=== PATIENT | female | born 1955 | race Caucasian/White ===

== ENCOUNTER 2020-06-14 21:06 | Observation (INO) ==
[2020-06-14] MEDS ORDERED: methylPREDNISolone SOD SUC 125 MG/2 ML VIAL IV STA (21:34)
[2020-06-14] MEDS ORDERED: SODIUM CHLORIDE 0.9% 1,000 ML IV STA (21:34)
[2020-06-14] MEDS ORDERED: ALBUTEROL/IPRATROPIUM 3 ML NEB RESP TX STA (21:34)
[2020-06-14 21:44] LABS: Basophils % 0.2 % (0.0-0.8); Eosinophils % 0.1 % (0.00-10.9); Hematocrit 37.1 VOL% (35.7-47.0); Hemoglobin 12.4 GM/DL (12.0-16.0); Immature Granulocytes % 0.6 %; Immature Granulocytes Absolute 0.05 #; Lymphocytes # 1.7 10*3/uL (1.4-4.0); Lymphocytes % 19.4 % (21.3-54.2); Mean Corpuscular HGB Conc 33.4 GM/DL (32-36); Mean Corpuscular Volume 95.9 FL (87-102); Mean Platelet Volume 8.9 FL (9.6-12.0); Monocytes % 5.8 % (1.7-12.7); Neutrophils % 73.9 % (38.7-73.9); Platelet Count 307 T/CUMM (130-400); Red Blood Count 3.87 MC/CUMM (3.8-5.5); Red Cell Distribution Width 13.5 % (9.3-17.3); White Blood Count 8.5 T/CUMM (4-12)
[2020-06-14 22:05] LABS: Alanine Aminotransferase 19 U/L (13-56); Albumin 2.7 G/DL (3.4-5.0); Alkaline Phosphatase 133 U/L (45-117); Aspartate Amino Transferase 22 U/L (0-37); Bilirubin,Total < 0.39 MG/DL (0.2-1.0); Blood Urea Nitrogen 8 MG/DL (7-18); Estimated Glom Filtration Rate 99 ML/MIN; Glucose 107 MG/DL (74-106); Osmolality,Calculated 265.2 MOS/KG (273-304); Total Protein 6.7 G/DL (6.4-8.3)
[2020-06-14] MEDS ORDERED: POTASSIUM CHLORIDE 20 MEQ/15 ML UDCUP PO ONE (22:07)
[2020-06-14 22:14] LABS: Eosinophils 1 % (0-10); Lymphocytes 23 % (20-55); Platelet Estimate Normal; Segmented Neutrophils 75 % (50-85); Total Cells Counted 100
[2020-06-14] MEDS ORDERED: LEVOFLOXACIN INJ 500 MG in PREMIX 1 EACH IV STA (22:27)
[2020-06-14] MEDS ORDERED: ACETAMINOPHEN 325 MG TABLET PO PRN (23:22)
[2020-06-14] MEDS ORDERED: ZALEPLON 5 MG CAPSULE PO PRN (23:22)
[2020-06-14] MEDS ORDERED: DEXTROSE 50% 25 GM/50 ML VIAL IV PRN (23:22)
[2020-06-14] MEDS ORDERED: GLUCAGON 1 MG VIAL IM PRN (23:22)
[2020-06-14] MEDS ORDERED: ONDANSETRON 4 MG/2 ML VIAL IV PRN (23:22)
[2020-06-14] MEDS ORDERED: MORPHINE 4 MG/1 ML VIAL IV PRN (23:22)
[2020-06-14] MEDS ORDERED: guaiFENesin/DM ER 600-30 MG TABLET PO PRN (23:22)
[2020-06-14] MEDS ORDERED: hydrALAZINE 20 MG/1 ML VIAL IV PRN (23:22)
[2020-06-14] MEDS ORDERED: FUROSEMIDE 40 MG/4 ML VIAL IV ONE (23:22)
[2020-06-14] MEDS ORDERED: diphenhydrAMINE CAP 25 MG CAPSULE PO PRN (23:22)
[2020-06-14] MEDS ORDERED: NICOTINE 21 MG/24 HR PATCH TRANSDERM PRN (23:22)
[2020-06-14] MEDS ORDERED: ALBUTEROL 0.63 MG/3 ML NEB RESP TX PRN (23:23)
[2020-06-14 23:46] LABS: ABG Base Excess 1.8 MMOL/L (-2.5-2.5); ABG HCO3 25.9 MMOL/L (20-26); ABG Oxygen Saturation 94.5 % (95-100); ABG PCO2 41.4 MM HG (35-48); ABG PH 7.415 (7.35-7.45); ABG PO2 71.5 MM HG (80-95); ABG TCO2 23.3 MMOL/L (23-27); Allen Test Positive
[2020-06-15] MEDS ORDERED: POTASSIUM CHLORIDE 20 MEQ TABLET PO ONE (00:59)
[2020-06-15 02:13] LABS: Apearance,Urine CLOUDY (Clear); Bacteria,Urine Moderate /HPF (Few); Bilirubin,Urine Negative (Negative); Blood, Urine Negative (Negative); Glucose,Urine (UA) Negative (Negative); Ketones,Urine Negative (Negative); Mucus,Urine Moderate /LPF (Occasional); Nitrite,Urine Positive (Negative); Protein,Urine Negative; RBC,Urine 14 /HPF (0-4); Squamous Epithelial Cell,Urine Occasional /HPF (0-10); Urine Color Yellow (Yellow); Urine Specific Gravity 1.014 (1.001-1.035); Urine Urobilinogen < 2.0 EU/DL (0.2-1.0); WBC,Urine 588 /HPF (0-6)
[2020-06-15] MEDS: ALBUTEROL/IPRATROPIUM 3 ML NEB RESP TX SCH ×6 (03:56→23:41)
[2020-06-15 04:59] LABS: Hematocrit 40.4 VOL% (35.7-47.0); Hemoglobin 13.6 GM/DL (12.0-16.0); Immature Granulocytes % 0.4 %; Immature Granulocytes Absolute 0.03 #; Lymphocytes # 0.6 10*3/uL (1.4-4.0); Lymphocytes % 8.7 % (21.3-54.2); Mean Corpuscular HGB Conc 33.7 GM/DL (32-36); Mean Corpuscular Volume 95.1 FL (87-102); Mean Platelet Volume 8.9 FL (9.6-12.0); Monocytes % 0.6 % (1.7-12.7); Neutrophils % 90.3 % (38.7-73.9); Platelet Count 353 T/CUMM (130-400); Red Blood Count 4.25 MC/CUMM (3.8-5.5); Red Cell Distribution Width 13.4 % (9.3-17.3); White Blood Count 7.1 T/CUMM (4-12)
[2020-06-15 05:14] LABS: Calcium 8.5 MG/DL (8.5-10.1); Osmolality,Calculated 271.1 MOS/KG (273-304)
[2020-06-15 05:23] LABS: Hypochromasia 1+; Lymphocytes 6 % (20-55); Microcytosis Slight; Platelet Estimate Adequate; Segmented Neutrophils 92 % (50-85); Total Cells Counted 100
[2020-06-15] MEDS: methylPREDNISolone SOD SUC 125 MG/2 ML VIAL IV SCH ×2 (05:42→14:10)
[2020-06-15] MEDS: VERAPAMIL SR 240 MG TABLET PO SCH (08:46)
[2020-06-15] MEDS: ASPIRIN CHEW 81 MG TABLET PO SCH (08:46)
[2020-06-15] MEDS: FUROSEMIDE 20 MG TABLET PO SCH (08:46)
[2020-06-15] MEDS: ENOXAPARIN 40 MG/0.4 ML SYRINGE SUBCUT SCH (08:47)
[2020-06-15] MEDS: cefTRIAXone 1,000 MG in SYRINGE 1 EACH IV SCH (08:54)
[2020-06-15] MEDS: UMECLIDINIUM VILANTEROL INH SCH (09:05)
[2020-06-15] MEDS ORDERED: busPIRone 5 MG TABLET PO PRN (10:20)
[2020-06-15] MEDS ORDERED: AZITHROMYCIN INJ 500 MG in SODIUM CHLORIDE 0.9% 250 ML IV SCH (11:00)
[2020-06-15] MEDS: ESCITALOPRAM 10 MG TABLET PO SCH (12:38)
[2020-06-15] MEDS: GABAPENTIN 100 MG CAPSULE PO SCH ×2 (16:36→20:49)
[2020-06-15] MEDS: ACETAMINOPHEN 325 MG TABLET PO SCH ×2 (16:36→20:49)
[2020-06-15] MEDS: predniSONE 20 MG TABLET PO SCH (20:49)
[2020-06-15] MEDS ORDERED: ESCITALOPRAM 10 MG TABLET PO SCH (21:00)
[2020-06-15] MEDS ORDERED: CARBIDOPA/LEVODOPA 25-250 MG TABLET PO SCH (21:00)
[2020-06-16] MEDS: ALBUTEROL/IPRATROPIUM 3 ML NEB RESP TX SCH ×3 (03:34→11:39)
[2020-06-16 05:49] LABS: Basophils % 0.1 % (0.0-0.8); Hematocrit 40.9 VOL% (35.7-47.0); Hemoglobin 13.3 GM/DL (12.0-16.0); Immature Granulocytes % 0.8 %; Immature Granulocytes Absolute 0.08 #; Lymphocytes # 1.2 10*3/uL (1.4-4.0); Lymphocytes % 11.4 % (21.3-54.2); Mean Corpuscular HGB Conc 32.5 GM/DL (32-36); Mean Corpuscular Volume 97.6 FL (87-102); Mean Platelet Volume 9.3 FL (9.6-12.0); Monocytes % 1.4 % (1.7-12.7); Neutrophils % 86.3 % (38.7-73.9); Platelet Count 386 T/CUMM (130-400); Red Blood Count 4.19 MC/CUMM (3.8-5.5); Red Cell Distribution Width 13.7 % (9.3-17.3); White Blood Count 10.3 T/CUMM (4-12)
[2020-06-16 06:14] LABS: Alanine Aminotransferase < 9 U/L (13-56); Albumin 2.8 G/DL (3.4-5.0); Alkaline Phosphatase 142 U/L (45-117); Aspartate Amino Transferase 9 U/L (0-37); Bilirubin,Total < 0.39 MG/DL (0.2-1.0); Blood Urea Nitrogen 8 MG/DL (7-18); Calcium 9.2 MG/DL (8.5-10.1); Estimated Glom Filtration Rate 83 ML/MIN; Glucose 206 MG/DL (74-106); Osmolality,Calculated 276.8 MOS/KG (273-304); Total Protein 7.4 G/DL (6.4-8.3)
[2020-06-16] MEDS: VERAPAMIL SR 240 MG TABLET PO SCH (08:13)
[2020-06-16] MEDS: ESCITALOPRAM 10 MG TABLET PO SCH (08:13)
[2020-06-16] MEDS: GABAPENTIN 100 MG CAPSULE PO SCH (08:14)
[2020-06-16] MEDS: FUROSEMIDE 20 MG TABLET PO SCH (08:14)
[2020-06-16] MEDS: ENOXAPARIN 40 MG/0.4 ML SYRINGE SUBCUT SCH (08:14)
[2020-06-16] MEDS: ACETAMINOPHEN 325 MG TABLET PO SCH (08:14)
[2020-06-16] MEDS: cefTRIAXone 1,000 MG in SYRINGE 1 EACH IV SCH (08:14)
[2020-06-16] MEDS: predniSONE 20 MG TABLET PO SCH (08:14)
[2020-06-16] MEDS: ASPIRIN CHEW 81 MG TABLET PO SCH (08:14)
[2020-06-16] MEDS: UMECLIDINIUM VILANTEROL INH SCH (08:15)
[2020-06-16] MEDS ORDERED: AZITHROMYCIN 250 MG TABLET PO SCH (09:00)
[2020-06-16 11:57] VITALS: BP 133/91
[2020-06-16] MEDS ORDERED: buPROPion 100 MG TABLET PO SCH (21:00)
== END 2020-06-16 13:24 | disposition home or self-care (01) ==
LOC: EDBD → EDUNIT# → N.EDINP 21:06 → N.ED 21:06 → SUATTDRO 23:22 → N.TELES 23:52
PROVIDERS: ADMIT Emergency Medicine; ATTEND Internal Medicine

== ENCOUNTER 2021-01-22 10:53 | Observation (INO) ==
[2021-01-22] MEDS ORDERED: methylPREDNISolone SOD SUC 125 MG/2 ML VIAL IV STA (11:20)
[2021-01-22] MEDS ORDERED: ALBUTEROL 2.5 MG/3 ML NEB RESP TX STA (11:20)
[2021-01-22 11:29] LABS: Basophils % 0.3 % (0.0-0.8); Eosinophils % 0.1 % (0.00-10.9); Hematocrit 31.6 VOL% (35.7-47.0); Hemoglobin 10.2 GM/DL (12.0-16.0); Immature Granulocytes % 0.6 %; Immature Granulocytes Absolute 0.08 #; Lymphocytes # 1.7 10*3/uL (1.4-4.0); Lymphocytes % 13.4 % (21.3-54.2); Mean Corpuscular HGB Conc 32.3 GM/DL (32-36); Mean Corpuscular Volume 90.8 FL (87-102); Mean Platelet Volume 8.6 FL (9.6-12.0); Monocytes % 8.5 % (1.7-12.7); Neutrophils % 77.1 % (38.7-73.9); Platelet Count 681 T/CUMM (130-400); Red Blood Count 3.48 MC/CUMM (3.8-5.5)
[2021-01-22 11:50] LABS: Alanine Aminotransferase < 6 U/L (13-56); Alkaline Phosphatase 152 U/L (45-117); Aspartate Amino Transferase 10 U/L (0-37); Blood Urea Nitrogen 6 MG/DL (7-18); Calcium 8.5 MG/DL (8.5-10.1); Carbon Dioxide 30 MMOL/L (21-32); Estimated Glom Filtration Rate 118 ML/MIN; Glucose 89 MG/DL (74-106); Osmolality,Calculated 260.5 MOS/KG (273-304); Potassium 3.6 MMOL/L (3.5-5.1); Sodium 132 MMOL/L (136-145); Total Protein 6.5 G/DL (6.4-8.2)
[2021-01-22 12:24] LABS: Microcytosis 1+; Platelet Estimate Increased
[2021-01-22 12:25] LABS: Hypochromasia 1+
[2021-01-22 12:34] LABS: Lymphocytes 19 % (20-55); Segmented Neutrophils 74 % (50-85)
[2021-01-22 12:35] LABS: Total Cells Counted 100
[2021-01-22] MEDS ORDERED: ENOXAPARIN 80 MG/0.8 ML SYRINGE SUBCUT STA (13:13)
[2021-01-22] MEDS ORDERED: ENOXAPARIN 100 MG/ML SYRINGE SUBCUT ONE (13:43)
[2021-01-22] MEDS ORDERED: GLUCAGON 1 MG VIAL IM PRN (13:59)
[2021-01-22] MEDS ORDERED: DEXTROSE 50% 25 GM/50 ML VIAL IV PRN (13:59)
[2021-01-22] MEDS ORDERED: hydrALAZINE 20 MG/1 ML VIAL IV PRN (13:59)
[2021-01-22] MEDS ORDERED: NICOTINE 21 MG/24 HR PATCH TRANSDERM PRN (13:59)
[2021-01-22] MEDS ORDERED: ONDANSETRON 4 MG/2 ML VIAL IV PRN (13:59)
[2021-01-22] MEDS ORDERED: DICLOFENAC 1% GEL 100 GM TUBE TOP PRN (14:01)
[2021-01-22] MEDS: cefTRIAXone 1,000 MG in SODIUM CHLORIDE 0.9% 100 ML IV SCH (16:35)
[2021-01-22] MEDS: AZITHROMYCIN INJ 500 MG in SODIUM CHLORIDE 0.9% 250 ML IV SCH (17:00)
[2021-01-22] MEDS: MELOXICAM 7.5 MG TABLET PO SCH (18:42)
[2021-01-22] MEDS: ALBUTEROL/IPRATROPIUM 3 ML NEB RESP TX SCH (19:22)
[2021-01-22 20:12] LABS: Cancer Antigen 19-9 < 1.20 U/ML (0-35)
[2021-01-22] MEDS: guaiFENesin/DM ER 600-30 MG TABLET PO SCH (20:44)
[2021-01-22] MEDS: APIXABAN 5 MG TABLET PO SCH (20:44)
[2021-01-22] MEDS: MONTELUKAST 10 MG TABLET PO SCH (20:44)
[2021-01-22] MEDS: CARBIDOPA/LEVODOPA 25-250 MG TABLET PO SCH (20:45)
[2021-01-22] MEDS: carvediloL 6.25 MG TABLET PO SCH (20:45)
[2021-01-23] MEDS: ALBUTEROL/IPRATROPIUM 3 ML NEB RESP TX SCH ×4 (00:10→19:40)
[2021-01-23 05:32] LABS: Hematocrit 29.9 VOL% (35.7-47.0); Hemoglobin 9.5 GM/DL (12.0-16.0); Immature Granulocytes % 0.7 %; Immature Granulocytes Absolute 0.07 #; Lymphocytes # 1.3 10*3/uL (1.4-4.0); Lymphocytes % 14.3 % (21.3-54.2); Mean Corpuscular HGB Conc 31.8 GM/DL (32-36); Mean Corpuscular Volume 92.9 FL (87-102); Mean Platelet Volume 8.9 FL (9.6-12.0); Monocytes % 3.7 % (1.7-12.7); Neutrophils % 81.3 % (38.7-73.9); Platelet Count 654 T/CUMM (130-400); Red Blood Count 3.22 MC/CUMM (3.8-5.5); Red Cell Distribution Width 14.2 % (9.3-17.3); White Blood Count 9.4 T/CUMM (4-12)
[2021-01-23 06:12] LABS: Calcium 8.7 MG/DL (8.5-10.1); Osmolality,Calculated 272.8 MOS/KG (273-304); Potassium 3.5 MMOL/L (3.5-5.1); Risk Ratio 2.64; Thyroid Stimulating Hormone 0.49 uIU/ml (0.358-3.74); VLDL CHOLESTEROL 13.8 MG/DL
[2021-01-23] MEDS: FUROSEMIDE 20 MG TABLET PO SCH (09:26)
[2021-01-23] MEDS: PRAMIPEXOLE 0.25 MG TABLET PO SCH (09:27)
[2021-01-23] MEDS: MELOXICAM 7.5 MG TABLET PO SCH ×2 (09:27→16:38)
[2021-01-23] MEDS: PANTOPRAZOLE 40 MG TABLET PO SCH (09:27)
[2021-01-23] MEDS: guaiFENesin/DM ER 600-30 MG TABLET PO SCH (09:27)
[2021-01-23] MEDS: ASPIRIN CHEW 81 MG TABLET PO SCH (09:27)
[2021-01-23] MEDS: VERAPAMIL SR 240 MG TABLET PO SCH (09:27)
[2021-01-23] MEDS: carvediloL 6.25 MG TABLET PO SCH ×2 (09:27→20:37)
[2021-01-23] MEDS: CALCIUM (CARBONATE)/VITAMIN D 500 MG-200 UNIT TABLET PO SCH (09:27)
[2021-01-23] MEDS: APIXABAN 5 MG TABLET PO SCH ×2 (09:27→20:36)
[2021-01-23] MEDS ORDERED: TUBERCULIN SKIN TEST 0.1 ML SYRINGE INTRADERM ONE (10:36)
[2021-01-23] MEDS: Fluticasone-Umeclidin-Vilanter [Trelegy Ellipta] 100-62.5-25 mcg INH SCH (10:48)
[2021-01-23] MEDS: cefTRIAXone 1,000 MG in SODIUM CHLORIDE 0.9% 100 ML IV SCH (14:15)
[2021-01-23] MEDS: AZITHROMYCIN INJ 500 MG in SODIUM CHLORIDE 0.9% 250 ML IV SCH (15:00)
[2021-01-23] MEDS: CARBIDOPA/LEVODOPA 25-250 MG TABLET PO SCH (20:37)
[2021-01-23] MEDS: MONTELUKAST 10 MG TABLET PO SCH (20:37)
[2021-01-24] MEDS: ALBUTEROL/IPRATROPIUM 3 ML NEB RESP TX SCH ×4 (01:44→19:59)
[2021-01-24 05:15] LABS: Basophils % 0.2 % (0.0-0.8); Eosinophils # 0.1 10*3/uL (0.0-0.87); Eosinophils % 0.5 % (0.00-10.9); Hematocrit 27.8 VOL% (35.7-47.0); Hemoglobin 8.9 GM/DL (12.0-16.0); Immature Granulocytes % 0.6 %; Immature Granulocytes Absolute 0.06 #; Lymphocytes # 3.3 10*3/uL (1.4-4.0); Lymphocytes % 32.1 % (21.3-54.2); Mean Corpuscular Volume 92.4 FL (87-102); Mean Platelet Volume 8.3 FL (9.6-12.0); Monocytes % 6.8 % (1.7-12.7); Neutrophils % 59.8 % (38.7-73.9); Platelet Count 551 T/CUMM (130-400); Red Blood Count 3.01 MC/CUMM (3.8-5.5); Red Cell Distribution Width 14.2 % (9.3-17.3); White Blood Count 10.3 T/CUMM (4-12)
[2021-01-24 05:38] LABS: Calcium 8.1 MG/DL (8.5-10.1); Osmolality,Calculated 269.1 MOS/KG (273-304); Potassium 3.6 MMOL/L (3.5-5.1)
[2021-01-24] MEDS: APIXABAN 5 MG TABLET PO SCH ×2 (09:05→20:48)
[2021-01-24] MEDS: ASPIRIN CHEW 81 MG TABLET PO SCH (09:05)
[2021-01-24] MEDS: VERAPAMIL SR 240 MG TABLET PO SCH (09:05)
[2021-01-24] MEDS: MELOXICAM 7.5 MG TABLET PO SCH ×2 (09:05→16:02)
[2021-01-24] MEDS: carvediloL 6.25 MG TABLET PO SCH ×2 (09:05→20:46)
[2021-01-24] MEDS: FUROSEMIDE 20 MG TABLET PO SCH (09:06)
[2021-01-24] MEDS: CALCIUM (CARBONATE)/VITAMIN D 500 MG-200 UNIT TABLET PO SCH (09:06)
[2021-01-24] MEDS: PANTOPRAZOLE 40 MG TABLET PO SCH (09:06)
[2021-01-24] MEDS: PRAMIPEXOLE 0.25 MG TABLET PO SCH (09:06)
[2021-01-24] MEDS: Fluticasone-Umeclidin-Vilanter [Trelegy Ellipta] 100-62.5-25 mcg INH SCH (09:07)
[2021-01-24] MEDS: CARBIDOPA/LEVODOPA 25-250 MG TABLET PO SCH (20:48)
[2021-01-24] MEDS: MONTELUKAST 10 MG TABLET PO SCH (20:48)
[2021-01-24] MEDS: AMOXICILLIN/CLAV 875 MG TABLET PO SCH (20:49)
[2021-01-25] MEDS: ALBUTEROL/IPRATROPIUM 3 ML NEB RESP TX SCH ×4 (00:57→21:11)
[2021-01-25] MEDS: APIXABAN 5 MG TABLET PO SCH ×2 (08:37→20:00)
[2021-01-25] MEDS: FUROSEMIDE 20 MG TABLET PO SCH (08:38)
[2021-01-25] MEDS: Fluticasone-Umeclidin-Vilanter [Trelegy Ellipta] 100-62.5-25 mcg INH SCH (08:38)
[2021-01-25] MEDS: ASPIRIN CHEW 81 MG TABLET PO SCH (08:38)
[2021-01-25] MEDS: PANTOPRAZOLE 40 MG TABLET PO SCH (08:39)
[2021-01-25] MEDS: carvediloL 6.25 MG TABLET PO SCH ×2 (08:39→19:59)
[2021-01-25] MEDS: MELOXICAM 7.5 MG TABLET PO SCH ×2 (08:39→16:00)
[2021-01-25] MEDS: AMOXICILLIN/CLAV 875 MG TABLET PO SCH ×2 (08:40→19:59)
[2021-01-25] MEDS: CALCIUM (CARBONATE)/VITAMIN D 500 MG-200 UNIT TABLET PO SCH (08:40)
[2021-01-25] MEDS: PRAMIPEXOLE 0.25 MG TABLET PO SCH (08:40)
[2021-01-25] MEDS: VERAPAMIL SR 240 MG TABLET PO SCH (08:41)
[2021-01-25] MEDS: CARBIDOPA/LEVODOPA 25-250 MG TABLET PO SCH (20:00)
[2021-01-25] MEDS: MONTELUKAST 10 MG TABLET PO SCH (20:00)
[2021-01-26] MEDS: ALBUTEROL/IPRATROPIUM 3 ML NEB RESP TX SCH (07:12)
[2021-01-26] MEDS: ASPIRIN CHEW 81 MG TABLET PO SCH (07:59)
[2021-01-26] MEDS: PANTOPRAZOLE 40 MG TABLET PO SCH (07:59)
[2021-01-26] MEDS: AMOXICILLIN/CLAV 875 MG TABLET PO SCH (08:00)
[2021-01-26] MEDS: carvediloL 6.25 MG TABLET PO SCH (08:00)
[2021-01-26] MEDS: FUROSEMIDE 20 MG TABLET PO SCH (08:00)
[2021-01-26] MEDS: MELOXICAM 7.5 MG TABLET PO SCH (08:00)
[2021-01-26] MEDS: PRAMIPEXOLE 0.25 MG TABLET PO SCH (08:00)
[2021-01-26] MEDS: APIXABAN 5 MG TABLET PO SCH (08:00)
[2021-01-26] MEDS: VERAPAMIL SR 240 MG TABLET PO SCH (08:01)
[2021-01-26] MEDS: CALCIUM (CARBONATE)/VITAMIN D 500 MG-200 UNIT TABLET PO SCH (08:01)
[2021-01-26] MEDS: Fluticasone-Umeclidin-Vilanter [Trelegy Ellipta] 100-62.5-25 mcg INH SCH (08:01)
[2021-01-26 11:00] VITALS: BP 149/83
== END 2021-01-26 12:05 ==
LOC: EDUNIT# → N.EDINP 10:53 → N.ED 10:53 → SUATTDRO 13:59 → N.3E 17:25
PROVIDERS: ADMIT Internal Medicine; ATTEND Student in an Organized Health Care Education/Training Program